=== PATIENT | female | born 1965 | race Caucasian/White ===

== ENCOUNTER 2018-12-01 10:14 | Day surgery (SDC) | payer BC ==
[~2018-12-01 10:14] MED LIST: Acetaminophen/HYDROcodone 325-5 MG Tab PO PRN; Bupivacaine 0.25%/EPINEPHrine 1:200,000 10 ML SDV INJECT ONE; Bupivacaine 25%/EPINEPHrine/PF 30 ML ONE; Lactated Ringers 1,000 ML IV SCH; ceFAZolin 2 GM in Premix Bag 1 BAG IV ONE
--- NOTE | 2018-12-01 11:27 | PCM.PREANE ---
Preanesthetic Assessment - Anesthesia/Transfusion/Family Hx Anesthesia History: Prior Anesthesia Without Reaction Other Type of Anesthesia Reaction Comment: nauzea postop, doesn't want scopolamine patch because her mother reacted to Family History of Anesthesia Reaction: No Transfusion History: No Prior Transfusion(s) Intubation History: Unknown - Review of Systems General: No Symptoms Pulmonary: No Symptoms Cardiovascular: No Symptoms Gastrointestinal: No Symptoms Neurological: No Symptoms Other: Reports: None - Physical Assessment NPO Status Date: 11/30/18 NPO Status Time: 22:30 O2 Sat by Pulse Oximetry: 99 Respiratory Rate: 18 Vital Signs: Last Vital Signs Temp 36.8 C 12/01/18 10:45 Pulse 83 12/01/18 10:45 Resp 18 12/01/18 10:45 BP 149/65 H 12/01/18 10:45 Pulse Ox 99 12/01/18 10:45 Height: 1.63 m Weight: 61.689 kg ASA Class: 2 Mental Status: Alert & Oriented x3 Airway Class: Mallampati = 2 Dentition: Reports: Normal Dentition Thyro-Mental Finger Breadths: 3 Mouth Opening Finger Breadths: 2 (very,very small mouth) ROM/Head Extension: Full Lungs: Clear to Auscultation, Normal Respiratory Effort Cardiovascular: Regular Rate, Regular Rhythm - Lab Values: Laboratory Last Values Urine HCG, Qual NEGATIVE (NEGATIVE) 12/01/18 10:30 - Allergies Allergies/Adverse Reactions: Allergies Allergy/AdvReac Type Severity Reaction Status Date / Time No Known Allergies Allergy Verified 11/29/18 08:11 - Blood Blood Available: No - Anesthesia Plan Pre-Op Medication Ordered: None - Acknowledgements Anesthesia Type Planned: General Anesthesia Pt an Appropriate Candidate for the Planned Anesthesia: Yes Alternatives and Risks of Anesthesia Discussed w Pt/Guardian: Yes Pt/Guardian Understands and Agrees with Anesthesia Plan: Yes PreAnesthesia Questionnaire HEENT History: Reports: Allergic Rhinitis, Other (See Below) Other HEENT History: wears glasses/contacts Cardiovascular History: Reports: None Respiratory History: Reports: None Gastrointestinal History: Reports: None Genitourinary History: Reports: None 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: Musculoskeletal History: Reports: Back Pain, Chronic, Other (See Below) (neck pain) Other Musculoskeletal History: hx of stress fractures to both ankles Neurological History: Reports: Migraines Psychiatric History: Reports: Anxiety Endocrine/Metabolic History: Reports: None Hematologic History: Reports: None Immunologic History: Reports: None Oncologic (Cancer) History: Reports: None Dermatologic History: Reports: None - Past Surgical History Head Surgeries/Procedures: Reports: None HEENT Surgical History: Reports: None Cardiovascular Surgical History: Reports: None Respiratory Surgical History: Reports: None GI Surgical History: Reports: Colonoscopy Female Surgical History: Reports: Breast Biopsy, Tubal Ligation, Other (See Below) Other Female Surgeries/Procedures: hysteroscopy Endocrine Surgical History: Reports: None Neurological Surgical History: Reports: None Musculoskeletal Surgical History: Reports: Other (See Below) Other Musculoskeletal Surgeries/Procedures:: rt bunionectomy in 8th grade Oncologic Surgical History: Reports: None Dermatological Surgical History: Reports: None - SUBSTANCE USE Smoking Status *Q: Never Smoker Recreational Drug Use History: No - HOME MEDS Home Medications: Home Meds Cetirizine [ZyrTEC] 10 mg PO DAILY 11/29/18 [History] ClonazePAM [KlonoPIN] 0.5 mg PO BEDTIME 11/29/18 [History] - CURRENT (IN HOUSE) MEDS Current Meds: Current Medications Hydrocodone Bitart/Acetaminophen ([place] 325-5 Mg) 1 tab PO Q4H PRN PRN Reason: Pain Lactated Ringer's (Ringers, Lactated) 1,000 mls @ 125 mls/hr IV ASDIRECTED [facility] Last Admin: 12/01/18 10:45 Dose: 125 mls/hr Discontinued Medications Bupivacaine HCl/Epinephrine Bitart (Marcaine 0.25%/Epinephrine 1:200,000) 30 ml INJECT ONETIME ONE Stop: 12/01/18 08:01 Cefazolin Sodium/Dextrose 2 gm (/ Premix) 50 mls @ 100 mls/hr IV ONETIME ONE Stop: 12/01/18 08:29 Bupivacaine HCl/Epinephrine Bitart (Sensorc Mpf 0.25%-Epi [id number]) Confirm Administered Dose 30 mls @ as directed .ROUTE .STK-MED ONE Stop: 12/01/18 07:33
[2018-12-01] MEDS ORDERED: Dexamethasone 4 MG/ML 5 ML MDV ONE (12:10)
[2018-12-01] MEDS ORDERED: Ondansetron 4 MG/2 ML SDV ONE ×2 (12:11→14:24)
[2018-12-01] MEDS ORDERED: Midazolam 1 MG/ML 2 ML SDV ONE (12:12)
[2018-12-01] MEDS ORDERED: fentaNYL 100 MCG/2 ML SDV ONE ×2 (12:13→13:26)
[2018-12-01] MEDS ORDERED: Propofol 200 MG/20 ML SDV ONE (12:13)
[2018-12-01] MEDS ORDERED: Lidocaine 2% 5 ML SDV ONE (12:13)
[2018-12-01] MEDS ORDERED: ceFAZolin 1 GM Vial ONE (13:09)
[2018-12-01] MEDS ORDERED: Phenylephrine/Normal Saline 100 MCG/ML 10 ML Syringe ONE (13:33)
[2018-12-01] MEDS ORDERED: Neostigmine Methylsulfate 1 MG/ML 5 ML Syringe ONE (14:25)
[2018-12-01] MEDS ORDERED: Glycopyrrolate 0.2 MG/ML SDV ONE (14:25)
[2018-12-01] MEDS ORDERED: Ketorolac 30 MG/ML SDV ONE (14:56)
[2018-12-01] MEDS ORDERED: fentaNYL 100 MCG/2 ML SDV IVPUSH PRN (15:24)
--- NOTE | 2018-12-01 15:52 | PCM.OPNOTE ---
- General Post-Op/Procedure Note Date of Surgery/Procedure: 12/01/18 Operative Procedure(s): bilateral breast reduction Pre Op Diagnosis: bilateral macromastia Post-Op Diagnosis: Same Anesthesia Technique: General ET Tube, Local Primary Surgeon: Savannah Mclaughlin Busher Helper: Cindy Sargent Complications: None Condition: Good Free Text/Narrative:: Intake & Output 11/30/18 12/01/18 12/01/18 23:59 07:59 15:59 Intake Total 2000 Output Total 400 Balance 1600
[2018-12-01] MEDS ORDERED: Promethazine 25 MG/ML SDV IM ONE (16:56)
--- NOTE | 2018-12-01 16:57 | PCM.POSTAN ---
POST ANESTHESIA ASSESSMENT - MENTAL STATUS Mental Status: Alert, Oriented - RESPIRATORY Respiratory Status: Respiratory Rate WNL, Airway Patent, O2 Saturation Stable - CARDIOVASCULAR CV Status: Pulse Rate WNL, Blood Pressure Stable - GASTROINTESTINAL GI Status: No Symptoms - PAIN Pain Score: 4 - POST OP HYDRATION Hydration Status: Adequate & Stable - OBSERVATIONS Free Text/Narrative:: no anesthesia problems.
[2018-12-01] MEDS ORDERED: Promethazine 25 MG/ML SDV ONE (16:58)
[2018-12-01] MEDS ORDERED: Scopolamine 1.5 MG Transdermal Patch TRDERM PRN (18:20)
--- NOTE | 2018-12-01 22:53 | OR ---
SURGEON: SAVANNAH MCLAUGHLIN MD DATE OF PROCEDURE: 12/01/2018 PREOPERATIVE DIAGNOSIS: Bilateral macromastia. POSTOPERATIVE DIAGNOSIS: Bilateral macromastia. PROCEDURE: Bilateral breast reduction. PRIMARY SURGEON: Savannah Mclaughlin MD. WHEEL INSTALLER: TIM Ambrocio. ANESTHESIA: General, ET tube with local. REASON FOR AND ROLE OF WHEEL INSTALLER: Retraction, prepping, draping, positioning and closure assistance. INDICATIONS: Ms. Easley is a 53-year-old female seen today in evaluation for bilateral macromastia. Risks and benefits were discussed with her including, but not limited to, bleeding, infection, damage to underlying or overlying structures, possible need for future intervention, and possible scarring. The patient does have significant scoliosis, which is noted today. This causes some asymmetry and illusion of the left breast being larger than the right. It is likely somewhat larger and she knows we will take this into account, but the scoliosis may make things more difficult for us. She understands. PROCEDURE IN DETAIL: After informed consent was obtained and placed on the chart, the patient was brought to operating theater and laid in supine position. After adequate general anesthesia was obtained, the area was prepped and draped, and a time-out was completed to confirm side and site. Attention was then paid to the markings made in the preanesthesia area for an inferior pedicle and a [place] pattern reduction. 0.25% Marcaine with epinephrine was injected into the area for a field block. 30 mL total was used. Attention was then paid to dissection of the inferior pedicle and a breast tourniquet was used and the inferior pedicle was de-epithelialized taking care to protect the nipple-areolar complex. Once adequately dissected, the breast tourniquet was removed and dissection was then carried on the superior skin flaps, which were approximately a little over 1 cm thick tapering to the chest wall medially and [address] to the chest wall laterally. Once this was dissected, the intervening breast tissue was removed en bloc and weighed. A little over 300 g was removed on each side. Once adequately removed, attention was then paid to meticulous hemostasis, copious irrigation, and the skin flaps were then tacked over the inferior pedicle with a stapler. The symmetric dissection was carried out on the opposite side and the patient was then sat into the upright position. Once symmetric dissection was carried on the opposite side, attention was then paid to meticulous hemostasis. Once the skin flaps were redraped, the patient was sat up into the supine position and symmetry was appreciated. The new area for the nipple-areolar complexes was marked and the patient was then laid back in the supine position. Once adequately marked, attention was then paid to isolation of the nipple-areolar complexes and those were cut out, brought through, and stapled in place. The skin was then closed with a deep 3-0 Monocryl Stratafix suture in a running fashion for the dermis and a running 4-0 Stratafix suture for the skin. Once adequately closed, the wounds were dressed with Steri-Strips, fluffs, and a Kerlix gauze dressing, and a compression bra. The patient tolerated this well, and all counts and needles were correct at the end of the case. FOLLOWUP INSTRUCTIONS: The patient will see us tomorrow in clinic, sooner with any problems, questions, or concerns, and was given a prescription for tramadol for pain control. MARSHA LEWIS /[id number]
== END 2018-12-01 19:10 | disposition home or self-care (01) ==
LOC: MW.SDS 10:14
PROVIDERS: ATTEND Plastic Surgery
DX: N62 Hypertrophy of breast (principal); N60.12 Diffuse cystic mastopathy of left breast; N60.11 Diffuse cystic mastopathy of right breast; F41.9 Anxiety disorder, unspecified; Z79.899 Other long term (current) drug therapy
CPT/HCPCS: 19318; 81025; A9270; J0690; J1100; J1885; J2001; J2250; J2370; J2405; J2550; J2704; J3010; J3490; J7120